=== PATIENT | male | born 1995 | race Caucasian/White ===

== ENCOUNTER 2025-03-10 02:54 | Inpatient (IN) | payer SELFPAY ==
[~2025-03-10] VITALS: Ht 165.1 cm; Wt 96.2 kg
[2025-03-10 02:56] VITALS: O2SAT 99
[2025-03-10 04:32] LABS: BG BASE EXCESS -0.3 mmol/L (-2.0-3.0); BG CARBOXYHEMOGLOBIN 0.7 % (0.5-1.5); BG DEOXYHEMOGLOBIN 2.0 % (0.0-5.0); BG FRACTION INSPIRED OXYGEN 21; BG HCO3 ACT 22.3 mmol/L (21.0-28.0); BG METHEMOGLOBIN 0.2 % (0.5-1.5); BG OXYGEN SATURATION 98.0 % (94.0-98.0); BG OXYHEMOGLOBIN 97.1 % (94.0-98.0); BG PCO2 31.3 mmHg (35.0-48.0); BG PH 7.470 (7.350-7.450); BG PO2 103.3 mmHg (83.0-108.0); BG SAMPLE SITE RIGHT RADIAL; BG TOTAL HEMOGLOBIN 16.3 g/dL (13.5-17.5); BG VENT MODE ROOM AIR
[2025-03-10 04:58] LABS: BASOPHILS % 0.4 % (0.0-2.0); EOSINOPHILS % 0.4 % (0.0-5.0); HEMATOCRIT. 43.1 % (42.0-52.0); HEMOGLOBIN. 15.3 g/dL (14.0-18.0); LYMPHOCYTES % 22.2 % (20.0-50.0); MEAN PLATELET VOLUME 7.2 fl (7.4-10.4); MONOCYTES % 9.6 % (2.0-8.0); NEUTROPHILS % 67.4 % (40.0-76.0); PLATELET 262 x1000/uL (130-400); RED BLOOD CELL COUNT 4.61 mill/uL (4.7-6.1); RED CELL DISTRIBUTION WIDTH 12.6 % (11.6-14.6)
[2025-03-10 05:13] LABS: CREATININE 0.8 mg/dL (0.6-1.3); UREA NITROGEN BLOOD 9 mg/dL (9-23)
[2025-03-10 05:14] LABS: PROTEIN TOTAL 7.5 g/dL (6.0-8.3)
[2025-03-10 05:15] LABS: ASPARTATE AMINOTRANSFERASE 55 IU/L (<34); BILIRUBIN DIRECT 0.7 mg/dL (<=3.0); BILIRUBIN TOTAL 2.4 mg/dL (0.1-1.0)
[2025-03-10] MEDS: SODIUM CHLORIDE 0.9% 1,000 ML IV ONE (05:19)
[2025-03-10] MEDS: LORAZEPAM 2MG/ML UD SYRINGE IV NR (05:20)
[2025-03-10 05:32] LABS: ETHANOL BLOOD < 10 mg/dL (<10)
[2025-03-10 08:00] VITALS: BP 128/88; PULSE 82; RESP 20; TEMP 37.1; O2SAT 100
[2025-03-10 11:18] VITALS: BP 128/88; PULSE 82; RESP 16; TEMP 37.0852
[2025-03-10 12:00] VITALS: BP 114/73; PULSE 87; RESP 18; TEMP 37.1; O2SAT 95
[2025-03-10 16:00] VITALS: BP 110/74; PULSE 86; RESP 20; TEMP 36.7; O2SAT 100
[2025-03-10] MEDS ORDERED: ONDANSETRON HCL 4MG/2ML INJ IV PRN (17:30)
[2025-03-10] MEDS ORDERED: ACETAMINOPHEN 325MG TABLET PO PRN ×2 (17:30)
[2025-03-10] MEDS ORDERED: GUAIFENESIN 200MG/10ML SUGAR FREE UDC PO PRN (17:30)
[2025-03-10] MEDS ORDERED: IPRATROPIUM/ALBUTEROL 0.5-3(2.5)MG/3ML NEB HHN PRN (17:30)
[2025-03-10] MEDS ORDERED: MAGNESIUM/ALUMINUM HYDROXIDE/SIMETHICONE 30ML UDC PO PRN (17:30)
[2025-03-10] MEDS ORDERED: CLONIDINE 0.1MG TABLET PO PRN (17:30)
[2025-03-10] MEDS: SODIUM CHLORIDE 0.9% 100 ML IV ONE (17:45)
[2025-03-10] MEDS: PANTOPRAZOLE SODIUM 40 MG/VIAL IV SCH (18:47)
[2025-03-10] MEDS: THIAMINE HCL 100MG TABLET PO SCH (18:47)
[2025-03-10] MEDS: POTASSIUM CHLORIDE 20MEQ/PACKET PO NR (18:47)
[2025-03-10 20:31] VITALS: BP 112/69; PULSE 83; RESP 18; TEMP 35.6; O2SAT 97
[2025-03-10 21:39] LABS: LACTATE DEHYDROGENASE 316 IU/L (120-246)
[2025-03-10 22:15] LABS: HEPATITIS C AB NON REACTIVE (Neg) (Negative)
[2025-03-10 22:45] LABS: TROPONIN I HIGH SENSITIVITY 5 ng/L (3.0-53)
[2025-03-10] MEDS: MVI, ADULT NO.1 10 ML, FOLIC ACID 1 MG, THIAMINE HCL 100 MG in SODIUM CHLORIDE 0.9% 1,0... IV NR (23:10)
[2025-03-11 00:23] VITALS: BP 109/68; PULSE 74; RESP 18; TEMP 36.6; O2SAT 98
[2025-03-11 01:49] LABS: CLARITY URINE CLEAR (CLEAR); COLOR URINE YELLOW (YELLOW); GLUCOSE URINE NEGATIVE (NEGATIVE); KETONES URINE NEGATIVE (NEGATIVE); LEUKOCYTE ESTERASE URINE NEGATIVE (NEGATIVE); NITRITE URINE NEGATIVE (NEGATIVE); OCCULT BLOOD URINE NEGATIVE (NEGATIVE); PH URINE 6.0 (4.5-8.0); PROTEIN URINE NEGATIVE (NEGATIVE); SPECIFIC GRAVITY URINE 1.007 (1.005-1.030); UROBILINOGEN URINE 0.2 E.U./dL (0.2-1.0)
[2025-03-11 02:00] LABS: *AMPHETAMINES SCREEN URINE PRESUMPTIVE POSITIVE (NEGATIVE); *BARBITURATES SCREEN URINE NEGATIVE (NEGATIVE); *BENZODIAZEPINES SCREEN URINE NEGATIVE (NEGATIVE); *COCAINE SCREEN URINE NEGATIVE (NEGATIVE); CANNABINOID URINE SCREEN NEGATIVE (NEGATIVE); METHADONE URINE SCREEN NEGATIVE (NEGATIVE); OPIATES URINE SCREEN NEGATIVE (NEGATIVE); PHENCYCLIDINE URINE SCREEN NEGATIVE (NEGATIVE)
[2025-03-11 02:01] LABS: ECSTASY MDMA SCREEN URINE NEGATIVE (NEGATIVE)
[2025-03-11 04:29] VITALS: BP 111/78; PULSE 63; RESP 12; TEMP 36.1; O2SAT 98
[2025-03-11] MEDS: CHLORDIAZEPOXIDE 25MG CAPSULE PO SCH (05:43)
[2025-03-11 06:33] LABS: BASOPHILS % 0.5 % (0.0-2.0); EOSINOPHILS % 2.3 % (0.0-5.0); HEMATOCRIT. 42.9 % (42.0-52.0); HEMOGLOBIN. 14.6 g/dL (14.0-18.0); LYMPHOCYTES % 41.0 % (20.0-50.0); MEAN PLATELET VOLUME 7.3 fl (7.4-10.4); MONOCYTES % 9.6 % (2.0-8.0); NEUTROPHILS % 46.6 % (40.0-76.0); PLATELET 226 x1000/uL (130-400); RED BLOOD CELL COUNT 4.44 mill/uL (4.7-6.1); RED CELL DISTRIBUTION WIDTH 12.6 % (11.6-14.6)
[2025-03-11 07:01] LABS: TROPONIN I HIGH SENSITIVITY 4 ng/L (3.0-53)
[2025-03-11 07:03] LABS: TRIGLYCERIDE 151.0 mg/dL (0-150)
[2025-03-11 07:04] LABS: LDL CHOLESTEROL 100.0 mg/dL (5-100); T4 FREE 0.91 ng/dL (0.89-1.76)
[2025-03-11 08:00] VITALS: BP 125/72; PULSE 88; RESP 20; TEMP 36.7
[2025-03-11 09:04] LABS: PROTEIN TOTAL 6.3 g/dL (6.0-8.3)
[2025-03-11 09:06] LABS: ASPARTATE AMINOTRANSFERASE 56 IU/L (<34); BILIRUBIN DIRECT 0.3 mg/dL (<=3.0); BILIRUBIN TOTAL 0.8 mg/dL (0.1-1.0)
[2025-03-11] MEDS: FOLIC ACID 1MG TABLET PO SCH (09:45)
[2025-03-11 12:00] VITALS: BP 123/71; PULSE 84; RESP 20; TEMP 36.6; O2SAT 98
[2025-03-11] MEDS ORDERED: FOLI-43 PO (13:51)
[2025-03-11] MEDS ORDERED: THIA100T72 PO (13:51)
[2025-03-11] MEDS ORDERED: PANT40TA51 MT (13:51)
[2025-03-11 14:03] VITALS: BP 123/71; PULSE 84; RESP 20; TEMP 97.8
== END 2025-03-11 15:36 | disposition home or self-care (01) | DRG 52 ==
LOC: ER 02:54 → 7WST 05:26 → EDBEDREQ 05:36 → EDBEDREQTM 05:36 → ENRESERV 06:36
PROVIDERS: ADMIT Hospitalist; ATTEND Hospitalist
DX: G93.40 Encephalopathy, unspecified (principal); E80.6 Other disorders of bilirubin metabolism; E87.6 Hypokalemia; F17.210 Nicotine dependence, cigarettes, uncomplicated
CPT/HCPCS: 36415; 36600; 71045; 80048; 80061; 80076; 80305; 80307; 80320; 80329; 81003; 82375; 82805; 83615; 83735; 84439; 84443; 84484; 85025; 86705; 87340; 93005; 93970; 99285; J2060; J2470; J3411; J3490; J7030; G0480